=== PATIENT | male | born 1985 | race African-American/Black ===

== ENCOUNTER 2018-07-22 23:47 | Emergency (ER) | payer OTHER ==
[~2018-07-22] VITALS: Ht 172.7 cm; Wt 75.0 kg
[2018-07-23 03:20] LABS: CLARITY URINE CLEAR (CLEAR); COLOR URINE YELLOW (YELLOW); KETONES URINE TRACE (NEGATIVE); LEUKOCYTE ESTERASE URINE TRACE (NEGATIVE); NITRITE URINE NEGATIVE (NEGATIVE); OCCULT BLOOD URINE NEGATIVE (NEGATIVE); PH URINE 5.5 (4.5-8.0); PROTEIN URINE NEGATIVE (NEGATIVE); SPECIFIC GRAVITY URINE 1.024 (1.005-1.030)
[2018-07-23 04:33] VITALS: BP 98/51
== END 2018-07-23 04:35 | disposition home or self-care (01) ==
LOC: ER 23:47
DX: N39.0 Urinary tract infection, site not specified (principal); F12.10 Cannabis abuse, uncomplicated
CPT/HCPCS: 81003; 99283

== ENCOUNTER 2019-04-09 05:41 | Emergency (ER) | payer OTHER ==
[~2019-04-09] VITALS: Ht 170.2 cm; Wt 68.3 kg
[2019-04-09 07:42] LABS: CLARITY URINE CLEAR (CLEAR); COLOR URINE YELLOW (YELLOW); KETONES URINE NEGATIVE (NEGATIVE); LEUKOCYTE ESTERASE URINE NEGATIVE (NEGATIVE); NITRITE URINE NEGATIVE (NEGATIVE); OCCULT BLOOD URINE NEGATIVE (NEGATIVE); PROTEIN URINE NEGATIVE (NEGATIVE); SPECIFIC GRAVITY URINE 1.009 (1.005-1.030); UROBILINOGEN URINE 0.2 E.U./dL (0.2-1.0)
[2019-04-09 08:42] VITALS: BP 129/74
== END 2019-04-09 08:44 | disposition home or self-care (01) ==
LOC: ER 05:41
DX: N52.9 Male erectile dysfunction, unspecified (principal); F12.10 Cannabis abuse, uncomplicated; Z87.891 Personal history of nicotine dependence
CPT/HCPCS: 81003; 99283; Z7610

== ENCOUNTER 2019-10-21 22:42 | Emergency (ER) | payer MEDICAID, OTHER ==
[~2019-10-21] VITALS: Ht 170.2 cm; Wt 69.0 kg
[2019-10-22 00:18] LABS: CLARITY URINE CLEAR (CLEAR); COLOR URINE YELLOW (YELLOW); KETONES URINE NEGATIVE (NEGATIVE); LEUKOCYTE ESTERASE URINE NEGATIVE (NEGATIVE); NITRITE URINE NEGATIVE (NEGATIVE); OCCULT BLOOD URINE NEGATIVE (NEGATIVE); PH URINE 5.5 (4.5-8.0); PROTEIN URINE NEGATIVE (NEGATIVE); SPECIFIC GRAVITY URINE 1.013 (1.005-1.030); UROBILINOGEN URINE 0.2 E.U./dL (0.2-1.0)
[2019-10-22 01:09] VITALS: BP 119/69
== END 2019-10-22 01:09 | disposition home or self-care (01) ==
LOC: ER 23:44
DX: R31.9 Hematuria, unspecified (principal); F12.10 Cannabis abuse, uncomplicated; F17.210 Nicotine dependence, cigarettes, uncomplicated
CPT/HCPCS: 81003; 99283

== ENCOUNTER 2023-06-16 12:53 | Emergency (ER) | payer MEDICAID ==
[~2023-06-16] VITALS: Ht 172.7 cm; Wt 74.0 kg
[2023-06-16 12:56] VITALS: BP 112/70; RESP 18; TEMP 98.1; O2SAT 99
[2023-06-16 12:59] VITALS: PULSE 60
[2023-06-16 13:55] LABS: CLARITY URINE CLOUDY (CLEAR); COLOR URINE YELLOW (YELLOW); KETONES URINE NEGATIVE (NEGATIVE); LEUKOCYTE ESTERASE URINE 3+ (NEGATIVE); NITRITE URINE NEGATIVE (NEGATIVE); OCCULT BLOOD URINE TRACE (NEGATIVE); PH URINE 5.5 (4.5-8.0); PROTEIN URINE TRACE (NEGATIVE); SPECIFIC GRAVITY URINE 1.024 (1.005-1.030)
[2023-06-16] MEDS ORDERED: DOXY100T28 PO (14:14)
[2023-06-16] MEDS ORDERED: PHEN-910 MT (14:14)
[2023-06-16] MEDS ORDERED: LIDOCAINE HCL/PF 1% 10 MG/ML 5ML VIAL INFIL SCH (14:15)
[2023-06-16] MEDS: CEFTRIAXONE SODIUM 500 MG/VIAL IM SCH ×2 (14:55→14:56)
[2023-06-18 19:06] LABS: NEISSERIA GONORRHOEAE NAA Positive (Negative)
== END 2023-06-16 14:57 | disposition home or self-care (01) ==
LOC: ER 12:53
DX: F12.10 Cannabis abuse, uncomplicated (principal); N34.2 Other urethritis
CPT/HCPCS: 87491; 87591; 81003; 87086; 96372; 99283; J0696; J3490; Z7610

== ENCOUNTER 2024-08-23 12:31 | Emergency (ER) | payer MEDICAID ==
[~2024-08-23] VITALS: Ht 170.2 cm; Wt 72.6 kg
[~2024-08-23 12:31] MED LIST: DOXY100T28 PO; PHEN-910 MT
[2024-08-23 12:34] VITALS: O2SAT 99
[2024-08-23 12:37] VITALS: BP 104/61; PULSE 82; RESP 16; TEMP 98.3; O2SAT 99
[2024-08-23] MEDS: TETANUS, DIPHTHERIA, PERTUSSIS VAC/PF 0.5ML (>10YR OLD) IM ONE (14:15)
== END 2024-08-23 15:14 | disposition home or self-care (01) ==
LOC: ER 12:31
DX: S80.811A Abrasion, right lower leg, initial encounter (principal); F12.90 Cannabis use, unspecified, uncomplicated; X58.XXXA Exposure to other specified factors, initial encounter; Y93.89 Activity, other specified; Y92.89 Other specified places as the place of occurrence of the external cause; Y99.8 Other external cause status
CPT/HCPCS: 90471; 90715; 99283